=== PATIENT | male | born 1980 | race Caucasian/White ===

== ENCOUNTER → 2023-08-21 13:49 | Outpatient (REF) | payer BC, SELFPAY | LOC: RAD 13:49 | PROVIDERS: ATTENDING PHYSICIAN Nurse Practitioner Family | DX: R59.0 Localized enlarged lymph nodes (principal) | CPT/HCPCS: 76536 ==

== ENCOUNTER → 2023-08-26 06:37 | Day surgery (SDC) | payer BC, SELFPAY | LOC: GI 06:37 | PROVIDERS: ATTENDING PHYSICIAN Internal Medicine | DX: Z12.11 Encounter for screening for malignant neoplasm of colon (principal); D12.2 Benign neoplasm of ascending colon; K63.5 Polyp of colon | CPT/HCPCS: 45385; 45380; 88305 ==

== ENCOUNTER → 2024-05-01 06:47 | Outpatient (REF) | payer BC, SELFPAY | LOC: RAD 06:47 | PROVIDERS: ATTENDING PHYSICIAN Physician Assistant Medical; FAMILY PHYSICIAN Internal Medicine | DX: J02.9 Acute pharyngitis, unspecified (principal) | CPT/HCPCS: 76536 ==

== ENCOUNTER → 2024-05-20 10:28 | Outpatient (REF) | payer BC, SELFPAY ==
[2024-05-20 10:55] VITALS: BP 154/97; BP_SYST 61
--- NOTE | 2024-05-20 11:54 | PTCARENOTE ---
[facility] note: Cystic fluid sample sent in capped syringe after confirming with Deann in the lab( Pathology).
== END ==
LOC: RADI 10:28
PROVIDERS: ATTENDING PHYSICIAN Nurse Practitioner Family
DX: E04.1 Nontoxic single thyroid nodule (principal)
CPT/HCPCS: 88305; 10005; 88112

== ENCOUNTER → 2024-09-02 08:19 | Outpatient (REF) | payer BC, SELFPAY ==
[2024-09-02 08:36] VITALS: BP 149/90; BP_SYST 70
== END ==
LOC: RADI 08:19
PROVIDERS: ATTENDING PHYSICIAN Internal Medicine Endocrinology, Diabetes & Metabolism; FAMILY PHYSICIAN Nurse Practitioner Family
DX: E04.1 Nontoxic single thyroid nodule (principal)
CPT/HCPCS: 88173; 88305; 10005